=== PATIENT | male | born 1985 | race Caucasian/White ===

== ENCOUNTER 2019-07-15 10:57 | Emergency (ER) | payer BC, SELFPAY ==
[2019-07-15 11:10] VITALS: BP 141/78; PULSE 57; RESP 20; TEMP 37.1; O2SAT 100
--- NOTE | 2019-07-15 11:13 | ED.CHESTPAIN ---
HPI - Chest Pain General Chief Complaint: Chest Pain Stated Complaint: chest discomfort Time Seen by Provider: 07/15/19 11:13 Source: patient and RN notes reviewed History of Present Illness HPI narrative: Patient is a 33-year-old male that presents the urgent care with complaints of intermittent chest discomfort/pain. Patient states is been ongoing for months and he has not gotten it checked out . Patient was waiting in the waiting room drinking 2 cups of coffee without any acute distress. Patient states that he believes it could be involved with stress, or may be having panic attacks . Patient denies any cardiac history. States that he did have instances where the pain did go down the left arm and again patient was never evaluated for that pain. Patient states that sometimes it worsens with certain movements. Patient denies any pain right at the moment. States that he also smokes hookah and has related some of the increased pain to the smoking. Patient states that he is limited his smoking recently. Denies any trauma to the chest or injury. No other acute complaints. No acute distress noted. Patient had a plan of care. Related Data Home Medications Medication Instructions Recorded Confirmed hydrochlorothiazide 12.5 mg PO DAILY 07/15/19 07/15/19 Allergies Allergy/AdvReac Type Severity Reaction Status Date / Time No Known Allergies Allergy Mild Verified 07/15/19 11:23 Review of Systems Review of Systems: Narrative: CONSTITUTIONAL: Denies fever, chills, or sweats. EYES: Denies visual changes, redness, or discharge. ENT: Denies rhinorrhea, congestion, sore throat, or otalgia. CARDIOVASCULAR: Reports of intermittent chest discomfort, exacerbated with movement RESPIRATORY: Denies cough or dyspnea. GASTROINTESTINAL: Denies abdominal pain, nausea, vomiting, or diarrhea. GENITOURINARY: Denies dysuria or hematuria. SKIN: Denies rash or itching. MUSCULOSKELETAL: Denies back pain, joint pain, or myalgia. NEUROLOGIC: Denies headache, numbness, or weakness. All other systems reviewed are negative, except as documented in HPI. [facility] Family History Family History (Updated 02/03/14 @ 07:13 by DOCTOR UNKNOWN) Sibling Family history of malignant neoplasm of thyroid Social History Social History Smoking status: Former smoker Smoking end date: 06/09/06 Alcohol intake: current Comments At the time of my signature, I reviewed and agree with the nursing past medical, surgical, social, and family history. There is no relevant family history pertinent to the patient complaint. Exam Narrative: Exam Narrative: GENERAL: This is a well-nourished, well-developed patient, in no apparent distress. HEAD: normocephalic, atraumatic. EYES: PERRL. Sclera clear/white. Vision is grossly intact. EARS: External ears normal NOSE: External nose normal with no obvious nasal discharge THROAT: Mucous membranes moist NECK: Neck supple CARDIOVASCULAR: Regular rate and rhythm without murmurs, gallops, or rubs. Nonreproducible pain on assessment RESPIRATORY: Clear to auscultation. Breath sounds equal bilaterally. No wheezes, rales, or rhonchi. SKIN: warm, intact with no suspicious lesions or rash, good texture and turgor. NEURO: awake, alert, and oriented to person, place and time. There were no obvious focal neurologic abnormalities. EXTREMITIES: No clubbing, cyanosis, or edema. Course Vital Signs Vital signs: Vital Signs Temperature 98.8 F 07/15/19 11:10 Pulse Rate 57 L 07/15/19 11:10 Respiratory Rate 07/15/19 11:10 Blood Pressure 141/78 H 07/15/19 11:10 Pulse Oximetry 100 07/15/19 11:10 Temperature 98.8 F 07/15/19 11:10 Pulse Rate 57 L 07/15/19 11:10 Respiratory Rate 07/15/19 11:10 Blood Pressure 141/78 H 07/15/19 11:10 Pulse Oximetry 100 07/15/19 11:10 Reviewed?patient is informed that they may have pre-hypertension or hypertension based on a blood pressure reading in the department. I
--- NOTE | 2019-07-15 11:30 | ECG_ITS ---
Measurements Intervals [place] Rate: 60 P: 51 SD: 159 QRS: 63 QRSD: 102 T: 30 QT: 389 QTc: 389 Interpretive Statements SINUS RHYTHM WITH SINUS ARRHYTHMIA BASELINE WANDER- II, III NORMAL ECG Electronically Signed On 07-15-2019 11:50:50 [employer] by Mark Galvan D.O.
== END 2019-07-15 11:49 | disposition home or self-care (01) ==
PROVIDERS: Emergency Provider Nurse Practitioner Family
DX: R07.89 Other chest pain (principal); F17.290 Nicotine dependence, other tobacco product, uncomplicated; I10 Essential (primary) hypertension
CPT/HCPCS: 93005; 99203; G0463

== ENCOUNTER 2021-09-25 15:46 | Inpatient (IN) | payer BC, SELFPAY ==
[2021-09-25] VITALS (8 sets, daily range): BP systolic 134–172; BP diastolic 72–99; PULSE 69–86; RESP 16–22; TEMP 36.7–37; O2SAT 97–100
--- NOTE | ~2021-09-25 | XR_ITS ---
EXAMINATION: XR surgery orthopedic DATE: 09/26/2021 16:30 INDICATION: Casting of a right ankle fracture TECHNIQUE: 2 fluoroscopic images of the right ankle were obtained during procedure performed by Dr. Jai adair. Radiologist was not present for the imaging or procedure. The amount of fluoroscopy time used during this procedure was 0.2 minutes. COMPARISON: 09/25/2021 FINDINGS: Again seen are fractures of the medial and lateral malleoli of the right ankle the post reduction and plaster splinting. The medial malleolar fracture has been reduced to essentially anatomic alignment. There is approximately 2 cortical widths posterior displacement and minimal anterior angulation of t he lateral malleolar fracture. The tibial plafond is now properly centered over the talar dome. IMPRESSION: 1. Near-anatomic alignment post reduction and casting of a bimalleolar fracture of the right ankle. S ee procedure note for further detail. Reviewed, dictated and finalized at location A. IMPRESSION: 1. Near-anatomic alignment post reduction and casting of a bimalleolar fracture of the right ankle. See procedure note for further detail.
--- NOTE | ~2021-09-25 | XR_ITS ---
EXAMINATION: XR ankle RT min 3V DATE: 09/25/2021 16:05 INDICATION: Right ankle pain, swelling and deformity post fall TECHNIQUE: Anteroposterior, oblique, mortise, and lateral views of the right ankle were obtained. COMPARISON: None. FINDINGS: Spiral fracture of the distal metaphyseal region of the right fibula. Mildly comminuted fracture at t he medial malleolus and coronally oriented fracture extending across the posterior margin of the tibi al plafond. All 3 malleolar fragments remain in relatively normal alignment with respect to the inter vening talar dome or there is anterior dislocation of the tibial plafond with the talar dome and all 3 malleolar fragments displaced posteriorly and approximately 35 degrees posterior angulated relative to the more proximal tibia and fibula. Normal alignment of the bones in the visualized mid and hindf oot. No other fractures identified. IMPRESSION: 1. Trimalleolar fracture dislocation at the right ankle with posterior displacement and angulation of the talar dome and associated medial, lateral and posterior malleolar fragments. Reviewed, dictated and finalized at location A. IMPRESSION: 1. Trimalleolar fracture dislocation at the right ankle with posterior displace ment and angulation of the talar dome and associated medial, lateral and screen cutter and trimmer ior malleolar fragments.
--- NOTE | ~2021-09-25 | XR_ITS ---
EXAM: XR ankle RT 2V HISTORY: Dislocation Reduction COMPARISON: Right ankle x-ray, same date at 4:00 PM. FINDINGS: Interval temporal cast placement. Improved alignment of the ankle joint, with mild persist ent lateral displacement and widening of the medial gutter. Near-anatomic alignment of the medial mal leolus fracture fragment. Improved alignment of the lateral malleolus fragment, with mild persistent posterior displacement. The syndesmosis widening has been corrected. IMPRESSION: Successful right ankle fracture/dislocation reduction, with mild residual lateral displacement of the talus and medial gutter widening, and mild posterior displacement of the lateral malleolus fragment. Reviewed, dictated and finalized at location K. IMPRESSION: Successful right ankle fracture/dislocation reduction, with mild residual later al displacement of the talus and medial gutter widening, and mild posterior dis placement of the lateral malleolus fragment.
--- NOTE | ~2021-09-25 | CT_ITS ---
CT OF RIGHT ANKLE EXAMINATION: CT ankle RT wo con DATE: 09/25/2021 18:18 INDICATION: Ankle fracture, preoperative planning. TECHNIQUE: Computed tomography (CT) of the right ankle was performed without intravenous contrast. Au tomated exposure control and iterative reconstruction technique were employed. The dose-length produc t was 548.41 mGy-cm. COMPARISON: Right ankle x-ray, same date. FINDINGS: Limitations: None Bones: Comminuted fracture of the medial malleolus, with fracture lines extending to involve a portio n of the posterior tibia. Fracture lines also involve small portions of the anterior and posterior ar ticular surface. Tiny, 2 mm ossific fragment in the posterior medial joint space. Predominantly obliq ue, minimally comminuted fracture of the distal fibula. The portion of the distal fibula that would n ormally articulate with the tibia is dislocated anteriorly. No other fracture. Soft Tissues: Ankle joint soft tissue swelling, otherwise the soft tissues appear within normal limit s. No evidence of tendon disruption. Fluid: Small volume ankle joint effusion. IMPRESSION: Comminuted medial malleolus fracture with extension to the posterior tibia. Minimal articular surface involvement. 2 mm posterior medial articular bone fragment. Predominantly oblique distal fibular fra cture, distal fragment dislocated anteriorly relative to its normal articulating position with the ti julia. Reviewed, dictated and finalized at location K. IMPRESSION: Comminuted medial malleolus fracture with extension to the posterior tibia. Min imal articular surface involvement. 2 mm posterior medial articular bone fragme nt. Predominantly oblique distal fibular fracture, distal fragment dislocated a nteriorly relative to its normal articulating position with the tibia.
--- NOTE | 2021-09-25 16:05 | ED.LOWEXIN ---
HPI - Extremity Injury (Lower) General Chief Complaint: Extremity Injury, Lower Stated Complaint: R ankle injury Time Seen by Provider: 09/25/21 16:05 Source: patient Mode of arrival: wheelchair Limitations: no limitations History of Present Illness HPI Narrative: The patient is a 36 yo male with a history of HTN presenting to the ER for evaluation of right ankle pain. Patient states that he fell while skateboarding, causing him to injure his right ankle. He reports deformity, and significant aching pain which is worsened with movement. Denies numbness or weakness in the right foot. Patient denies head trauma. Denies upper extremity injury. Patient was given 100 fentanyl in route by EMS. No evidence of open fracture or bleeding per EMS report. Patient's last oral intake was clear liquids around 1 hour ago, last meal noon today. Related Data Home Medications Medication Instructions Recorded Confirmed hydrochlorothiazide 12.5 mg PO DAILY 07/15/19 07/15/19 Allergies Allergy/AdvReac Type Severity Reaction Status Date / Time No Known Allergies Allergy Mild Verified 09/25/21 15:52 Review of Systems Review of Systems: CONSTITUTIONAL: Denies fever CARDIOVASCULAR: Denies chest pain RESPIRATORY: Denies cough or dyspnea. GASTROINTESTINAL: Denies abdominal pain SKIN: Denies rash MUSCULOSKELETAL: Denies back pain, reports right ankle pain NEUROLOGIC: Denies headache [facility] Family History Family History (Updated 02/03/14 @ 07:13 by DOCTOR UNKNOWN) Sibling Family history of malignant neoplasm of thyroid Social History Social History (Updated 09/25/21 @ 16:18 by Brissa Zayas MD) Smoking status: Former smoker Smoking end date: 06/09/06 Alcohol intake: current Alcohol use details: Social, occasional Substance use: current Substance use type: marijuana Exam Narrative: GENERAL: Awake, alert, conversant HEAD: Normocephalic, atraumatic. EYES: PERRLA and EOMI. ENT: Nares clear, no rhinorrhea or epistaxis. Mucous membranes moist. NECK: Supple. CHEST: No respiratory distress, breathing even and non labored HEART: Regular rate, sinus rhythm ABDOMEN:Non distended, non tender EXTREMITIES: Pelvis is stable to anterior and lateral compression without pain. Bilateral knee normal-appearing. Right ankle with obvious deformity, DP pulse 2+. Intact distal sensation. Patient is able to move his phalanxes/phalanges right foot.No laceration or ecchymoses. No areas of bleeding or laceration. SKIN: Warm, dry, no rash. NEURO:No focal deficits. Alert and oriented x3 Course Vital Signs Vital signs: Vital Signs Temperature 36.7 C 09/25/21 15:46 Pulse Rate 86 09/25/21 15:46 Respiratory Rate 18 09/25/21 15:46 Blood Pressure 161/99 H 09/25/21 15:46 Pulse Oximetry 97 09/25/21 15:46 Temperature 36.7 C 09/25/21 15:46 Pulse Rate 69 09/25/21 18:05 Respiratory Rate 18 09/25/21 18:05 Blood Pressure 172/92 H 09/25/21 18:05 Pulse Oximetry 98 09/25/21 18:05 Procedures Orthopedic Fracture Reduction Fracture #1: Fracture Reduction date: 09/25/21 Fracture Reduction time: 17:27 Time Out Performed: Yes Side: right Fracture Reduction Location: tibia and fibula Analgesia: procedural sedation and hematoma block Pre-Procedure Neuro Vascular Exam: normal Technique: direct manipulation Post Reduction X-rays Demonstrate: anatomical reduction Post-reduction neuro exam: intact Post-reduction vascular exam: intact Splint Applied: Yes Patient Tolerated Procedure: well Procedural Sedation Procedural Sedation #1: Procedural Sedation Date: 09/25/21 Procedural Sedation Time: 17:27 Provider Performed: sedation and procedure Time Out: Yes Informed Consent Obtained: yes Equipment in Room: bag and mask, capnography, color television console monitor, oxygen, pulse oximeter and suction Plan for
[2021-09-25] MEDS: ONDANSETRON INJ 4 MG/2 ML VIAL IV PUSH ×2 (16:18→17:00)
[2021-09-25] MEDS: fentaNYL CITRATE INJ (*CRX) 100 MCG/2 ML VIAL 50 MCG IV PUSH ×2 (16:18→17:40)
[2021-09-25] MEDS: HYDROmorphone HCL INJ (*CRX) 1 MG/ML SYR 0.5 MG IV PUSH (17:00)
[2021-09-25] MEDS: SODIUM CHLORIDE 0.9% IV 1,000 ML 999 ML IV CONT (17:06)
[2021-09-25] MEDS: LIDO 1%/EPINEPHRINE 1:100,000 20 ML VIAL (17:07)
[2021-09-25] MEDS: PROPOFOL IV EMULSION 200 MG/20 ML VIAL (17:41)
--- NOTE | 2021-09-25 18:11 | PC.NURSE ---
Addendum entered by Rand Granados RN 09/25/21 19:45: 1733 procedure ended. Original Note: 1729 30mg of Propofol IV given. PT awake. 1730 20mg of propofol IV given PT awake. 1730 30mg of propofol IV given PT awake. 1731 20mg of propofol IV given PT awake.
[2021-09-25 18:49] LABS: Basophils Absolute Auto 0.1 K/mm3 (0.0-0.1); Basophils Percent Auto 0.4 % (0.2-1.2); Eosinophils Absolute Auto 0.1 K/mm3 (0-0.3); Eosinophils Percent Auto 0.9 % (0-4.4); Hematocrit 43.6 % (42.0-52.0); Hemoglobin 15.3 g/dL (14.0-18.0); Immature Granulocyte Absolute 0.04 K/mm3 (0.00-0.031); Immature Granulocyte Percent A 0.4 % (0-0.5); Lymphocytes Percent Auto 10.6 % (18.3-44.2); Mean Corpuscular HGB Conc 35.1 g/dl (32-36); Mean Corpuscular Hemoglobin 30.4 pg (26-34); Mean Corpuscular Volume 86.5 fl (80-100); Mean Platelet Volume 9.4 fl (7.4-10.4); Monocytes Absolute Auto 0.5 K/mm3 (0.1-0.6); Monocytes Percent Auto 4.8 % (2.6-8.5); Neutrophils Absolute Auto 9.4 K/mm3 (1.3-6.7); Neutrophils Percent Auto 82.9 % (45.5-73.1); Platelet Count Result 231 k/mm3 (150-375); Red Blood Count 5.04 M/mm3 (4.6-6.20); White Blood Count 11.3 K/mm3 (4.5-10.0)
[2021-09-25 18:59] LABS: Anion Gap 11 mmol/L (8-16); Blood Urea Nitrogen 17 mg/dL (9-20); Calcium 8.7 mg/dL (8.4-10.2); Carbon Dioxide 19 mmol/L (22-30); Chloride 111 mmol/L (98-107); Estimated CRCL calculation 126 ml/min; Estimated Glomerular Filt Rate > 60; Glucose 109 mg/dL (65-110); Sodium 141 mmol/L (137-145)
[2021-09-25] MEDS: HYDROcodone/acetaminophen (*CRX) 5-325 MG TABLET 1 TAB PO ×2 (19:25→22:55)
--- NOTE | 2021-09-25 20:58 | ADMGEN ---
This patient, Steve Damian, was admitted to Medical Room 343-01. Patient/family oriented to hospital policies and general routines including ID bracelet, bed and alarms, visiting hours, pain management, procedures, bathroom and other care routines, personal items, smoking policy, room service/diet, and visiting hours. Information on how to activate the Rapid Response Team has been discussed. Patient/Family are encouraged to report perceived risks to care and to ask questions if they do not understand what they are told or what they should do.
[2021-09-26] VITALS (7 sets, daily range): BP systolic 121–171; BP diastolic 74–91; PULSE 54–75; RESP 14–22; TEMP 36.2–37.1; O2SAT 96–100
[2021-09-26] MEDS: HYDROcodone/acetaminophen (*CRX) 5-325 MG TABLET 1 TAB PO ×2 (06:05→12:55)
--- NOTE | 2021-09-26 13:06 | WPDHPUPDATE1 ---
History and Physical Update Update Date/Time: 09/26/21 13:06 History and Physical has been reviewed, including an updated exam of the patient. There are NO changes in the patient's condition. Risks, benefits, and alternatives have been discussed and questions answered. Patient agrees to proceed with procedure.
--- NOTE | 2021-09-26 13:06 | PM.IMHP ---
H&P: HPI History of Present Illness Date/Time: 09/26/21 13:06 [place] WAS ON A SKATE BOARD AND FELL OFF. HE NOW HAS A RIGHT TRIMALLEOLAR ANKLE FRACTURE. HE WAS SEEN IN THE ED AND UNDERWENT CLOSED REDUCTION AND SPLINTING. HE WAS ADMITTED OVERNIGHT FOR PAIN CONTROL AND OBSERVATION WITH NEURO VASCULAR CHECKS DUE TO THE SEVERITY OF HIS DISLOCATION. HE WILL MOST LIKELY REQUIRE OBSERVATION FOR AT LEAST 1 WEEK PRIOR TO ORIF. HE IS HEAR FOR CLOSED REDUCTION AND SPLINT EXCHANGE TO A MORE STABLE SPLINT AND HE WILL F/U IN 1 WEEK FOR SKIN CHECK. Chief Complaint: RIGHT ANKLE TRIMALLEOLAR FRACTURE DISLOCATION Review of Systems Review of Systems: All systems reviewed & are unremarkable except as noted in HPI and below Constitutional: Constitutional: Reports no additional constitutional complaints Eyes: Eyes: Reports no additional eye complaints ENT: Reports system reviewed and no additional complaints, except as documented Cardiovascular: Cardiovascular: Reports no additional cardiovascular complaints, Denies chest pain, Denies chest pain with activity and Denies diaphoresis Respiratory: Respiratory: Reports no additional respiratory complaints, Denies cough and Denies dyspnea Gastrointestinal: Gastrointestinal: Reports no additional gastrointestinal complaints Genitourinary: Genitourinary: Reports no additional male genitourinary complaints Musculoskeletal: Musculoskeletal: Reports no additional musculoskeletal complaints Neurologic: Reports Normal hearing present, Denies Neuro-related abnormal movements, Denies Abnormal speech present and Denies abnormal gait [facility] Past Medical History Medical History (Updated 09/26/21 @ 15:24 by Mannie Helms MD) Hypertension Family History Family History Sibling Family history of malignant neoplasm of thyroid Social History Social History Smoking packs per day: 1 Smoking cigarettes per day: 20.0 Years smoked: 3.5 Smoking pack-years: 3.50 Smoking status: Former smoker Tobacco type: cigarettes and pipe Smoking end date: 06/09/06 Alcohol intake: current Drinks per week: 2 Alcohol use details: Social, occasional Substance use: current Substance use type: marijuana Other substance usage details: daily Spiritual care concerns: No Meds Home Medications and Allergies Home Medications Medication Instructions Recorded Confirmed Type hydrochlorothiazide 12.5 mg PO DAILY 07/15/19 09/25/21 History Allergies Allergy/AdvReac Type Severity Reaction Status Date / Time No Known Allergies Allergy Mild Verified 09/25/21 15:52 Vital Signs Vital Signs - 24 hr 09/25/21 15:46 09/25/21 17:24 09/25/21 17:30 Temperature 36.7 C Pulse Rate 86 Pulse Rate [Monitor] Respiratory Rate 18 22 H 20 Blood Pressure 161/99 H Blood Pressure [Right Arm] 147/95 H Pulse Oximetry 97 100 99 09/25/21 17:35 09/25/21 17:50 09/25/21 18:05 Temperature Pulse Rate Pulse Rate [Monitor] 70 69 69 Respiratory Rate 20 20 18 Blood Pressure Blood Pressure [Right Arm] 165/97 H 172/92 H 172/92 H Pulse Oximetry 100 98 98 09/25/21 20:54 09/25/21 21:16 09/26/21 06:00 Temperature 37.0 C 37.1 C Pulse Rate 72 70 73 Pulse Rate [Monitor] Respiratory Rate 16 22 H 22 H Blood Pressure 134/72 150/92 H 146/91 H Blood Pressure [Right Arm] Pulse Oximetry 100 100 100 Exam Extrem: Right lower extremity: normal capillary refill, edema, no joint enlargement, lower leg Details: normal to inspection, palpable cord and no edema; no tenderness, no abrasions, no lacerations and no ecchymosis, ankle Details: abnormal to inspection (swelling and ecchymosis is severe. no fracture blistering), tenderness Location: of the lateral malleolus, of the medial malleolus and of the anterior talofibular ligament (DELTOID LIGAMENT), swelling Details: diffusely and laterally,
--- NOTE | 2021-09-26 14:21 | WPDANESEPPF ---
Anes - Initial Pre Proc Eval Procedure: Operation Date: 09/26/21 14:30 Proposed Procedures p Closed Reduction Right Ankle With Splinting - Mannie Helms MD Date/Time: 09/26/21 14:21 Surgeon: Mannie Helms MD Pre Op Diagnosis: Trimalleolar fracture Patient Data Age: 36 Gender: M Height: 1.93 m Weight: 115.9 kg Last Vital Signs Temp 37.1 C 09/26/21 06:00 Pulse 73 09/26/21 06:00 Resp 22 H 09/26/21 06:00 BP 146/91 H 09/26/21 06:00 Pulse Ox 100 09/26/21 06:00 Allergies Allergy/AdvReac Type Severity Reaction Status Date / Time No Known Allergies Allergy Mild Verified 09/25/21 15:52 Home Medications Medication Instructions Recorded Confirmed Type hydrochlorothiazide 12.5 mg PO DAILY 07/15/19 09/25/21 History Laboratory Tests 09/25/21 09/25/21 09/25/21 18:42 18:42 18:42 WBC 11.3 K/mm3 H K/mm3 (4.5-10.0) RBC 5.04 M/mm3 M/mm3 (4.6-6.20) Hgb 15.3 g/dL g/dL (14.0-18.0) Hct 43.6 % % (42.0-52.0) MCV 86.5 fl fl (80-100) MCH 30.4 pg pg (26-34) MCHC 35.1 g/dl g/dl (32-36) RDW 12.0 % % (11.5-14.5) Plt Count 231 k/mm3 k/mm3 (150-375) MPV 9.4 fl fl (7.4-10.4) Immature Gran % (Auto) 0.4 % % (0-0.5) Neut % (Auto) 82.9 % H % (45.5-73.1) Lymph % (Auto) 10.6 % L % (18.3-44.2) [place] % (Auto) 4.8 % % (2.6-8.5) Eos % (Auto) 0.9 % % (0-4.4) Baso % (Auto) 0.4 % % (0.2-1.2) Lymph # (Auto) 1.20 K/mm3 K/mm3 (0.9-3.2) [place] # (Auto) 0.5 K/mm3 K/mm3 (0.1-0.6) Eos # (Auto) 0.1 K/mm3 K/mm3 (0-0.3) Baso # (Auto) 0.1 K/mm3 K/mm3 (0.0-0.1) Abs Immat Gran (auto) 0.04 K/mm3 H K/mm3 (0.00-0.031) Absolute Neuts (auto) 9.4 K/mm3 H K/mm3 (1.3-6.7) Absolute Nucleated RBC 0.0 K/mm3 K/mm3 (0.0-0.012) Nucleated RBC % 0.0 % % (0.0-0.2) Sodium 141 mmol/L mmol/L (137-145) Potassium 4.0 mmol/L mmol/L (3.4-5.0) Chloride 111 mmol/L H mmol/L (98-107) Carbon Dioxide 19 mmol/L L mmol/L (22-30) Anion Gap 11 mmol/L mmol/L (8-16) BUN 17 mg/dL mg/dL (9-20) Creatinine 1.00 mg/dL mg/dL (0.7-1.3) Estim Creat Clear Calc 126 ml/min ml/min Estimated GFR > 60 (59 - ) Glucose 109 mg/dL mg/dL (65-110) Calcium 8.7 mg/dL mg/dL (8.4-10.2) Blood Type B Positive Antibody Screen Negative Patient hx anesthesia problems: none Family hx anesthesia problems: none Results Review: All pre-operative results and documents have been reviewed as part of the pre-operative evaluation. [facility] Past Medical History Medical History (Updated 09/26/21 @ 14:22 by Francisco Calderon DO) Hypertension Family History Family History Sibling Family history of malignant neoplasm of thyroid Social History Social History Smoking packs per day: 1 Smoking cigarettes per day: 20.0 Years smoked: 3.5 Smoking pack-years: 3.50 Smoking status: Former smoker Tobacco type: cigarettes and pipe Smoking end date: 06/09/06 Alcohol intake: current Drinks per week: 2 Alcohol use details: Social, occasional Substance use: current Substance use type: marijuana Other substance usage details: daily Spiritual care concerns: No Anes - Eval Final PreProcedure Day of Procedure 09/26/21 14:21 Patient weight: obese Heart: regular rate and rhythm Lungs: clear to auscultation and normal air movement Airway: Mallampati scale class II Neurological: alert and oriented Last oral intake: >/= 8 hours ASA classification: III Emergent: no Anesthetic plan: proceed Anesthesia type and monitoring: general GI
[2021-09-26] MEDS: LACTATED RINGERS 1,000 ML 30 ML IV CONT (14:30)
--- NOTE | 2021-09-26 15:25 | SUR.PREOP ---
resting without complaints. Girlfriend Maria Ines now with patient. Discussed delay, voices understanding.
--- NOTE | 2021-09-26 16:30 | P.OP_ITS ---
Procedure Note - Detailed Date of Procedure 09/26/21 Pre-op Diagnosis Right Trimalleolar Ankle Fracture Post-op Diagnosis Same Procedure Performed CLOSED REDUCTION AND SPLINTING RIGHT ANKLE FRACTURE Surgeon Mannie Helms MD Anesthesia General and MAC Description of Procedure THE PATIENT WS TAKEN TO THE OPERATING ROOM IN STABLE CONDITION. HE WAS GIVEN GENERAL ANESTHESIA. THE RIGHT LOWER EXTREMITY WAS WASHED WITH A CHLORHEXIDINE WASH CLOTH. THE ANKLE HAD MODERATE TO SEVERE SWELLING. THERE WAS ECCHYMOSIS ON BOTH THE MEDIAL AND LATERAL SIDES OF THE ANKLE. THE ANKLE WAS IMAGED UNDER C- ARM AND WAS FOUND TO BE REDUCED. XEROFORM DRESSING WAS PLACED ON THE MEDIAL AND LATERAL SIDES OF THE ANKLE. NEXT A ION JOHNSON TYPE PLASTER SPLINT WAS PLACED AND WELL MOLDED. ONCE THE SPLINT WAS HARD, C-ARM XRAYS WERE TAKEN AGAIN AND IT WAS FOUND THAT THE ANKLE JOINT WAS WELL REDUCED. GENERAL ANESTHESIA WAS REVERS ED. THE PATIENT WAS TAKEN TO RECOVERY ROOM IN STABLE CONDITION. Estimated Blood Loss 0 Complications No immediate complications Condition Stable Disposition PACU
--- NOTE | 2021-09-26 16:53 | PM.DS ---
DS: Admitting Diagnosis Discharge Date 09/26/21 Admitting Diagnosis R ANKLE FRACTURE DS: Discharge Diagnosis Discharge Diagnosis (1) Trimalleolar fracture of right ankle: Qualifiers: Encounter type: initial encounter Fracture type: closed Qualified Code(s): S82.851A - Displaced trimalleolar fracture of right lower leg, initial encounter for closed fracture Code(s): S82.851A - Displaced trimalleolar fracture of right lower leg, initial encounter for closed fracture Status: Acute DS: Summary Hospital Course Reason for hospitalization: RIGHT ANKLE FRACTURE DISLOCATION Hospital Course: THE PATIENT WAS ADMITTED FOR A RIGHT ANKLE FRACTURE DISLOCATION. HIS PAIN WAS CONTROLLED. HE HAD A NORMAL DIET. HE WAS AMBULATING WELL WITH CRUTCHES. HE UNDERWENT A CLOSED REDUCTION AND SPLINTING IN THE OR. HE HAD SEVERE SWELLING AND ECCHYMOSIS. HE WILL BE DISCHARGED TODAY TO HOME. HE WILL F/U IN 5 DAYS FOR REEVALUATION AND SURGICAL PLANNING Time spent discussing smoking cessation with patient: 3 to 10 minutes Status at Discharge Functional status at discharge: independent ambulation Overall status at discharge: patient is progressing back to baseline Time Spent with Patient Time attestation: Total time spent providing and/or coordinating discharge services: Time spent: Less than 30 minutes DS: Data Data Completed and Pending Labs on day of discharge: Labs from last 24 hours 09/25/21 09/25/21 09/25/21 18:42 18:42 18:42 WBC 11.3 H RBC 5.04 Hgb 15.3 Hct 43.6 MCV 86.5 MCH 30.4 MCHC 35.1 RDW 12.0 Plt Count 231 MPV 9.4 Immature Gran % (Auto) 0.4 Neut % (Auto) 82.9 H Lymph % (Auto) 10.6 L [place] % (Auto) 4.8 Eos % (Auto) 0.9 Baso % (Auto) 0.4 Lymph # (Auto) 1.20 [place] # (Auto) 0.5 Eos # (Auto) 0.1 Baso # (Auto) 0.1 Abs Immat Gran (auto) 0.04 H Absolute Neuts (auto) 9.4 H Absolute Nucleated RBC 0.0 Nucleated RBC % 0.0 Sodium 141 Potassium 4.0 Chloride 111 H Carbon Dioxide 19 L Anion Gap 11 BUN 17 Creatinine 1.00 Estim Creat Clear Calc 126 Estimated GFR > 60 Glucose 109 Calcium 8.7 Blood Type B Positive Antibody Screen Negative Discharge Plan Discharge Attending physician on discharge: Mannie Helms Consulting providers: Danielle Jiménez Discharging Clinician: Mannie Helms Anticipated Discharge Date/Time: 09/26/21 16:41 Patient Disposition: Home, Self-Care Activity: may shower, no driving and follow weight bearing status Diet: as tolerated Wound Care Instructions: keep dressing dry Discharge Instructions: NON WEIGHT BEARING RIGHT LEG. ICE AND ELEVATE. F/U IN 5 DAYS ON THIS COMING FRIDAY Patient Instructions: Antibiotic Form Stand Alone Forms: General Discharge Information Follow-up/Referrals: Mannie Helms MD [Physician] - 10/01/21 Discharge Medications: New hydrocodone-acetaminophen 7.5-325 mg tablet 1 tablet PO Q8H PRN (Reason: pain) Qty: 30 RF: 0 Continued hydrochlorothiazide 12.5 mg Capsule 12.5 mg PO DAILY RF: 0 Date of admission: 09/25/21 17:56 Primary Care Provider: Andrew Cox Admitting Provider: Mannie Helms Attending physician on admission: Mannie Helms Condition: Stable
== END 2021-09-26 18:25 | disposition home or self-care (01) | DRG 563 ==
LOC: ANHED 18:32 → ANH3MED 19:52
PROVIDERS: Admitting Provider Orthopaedic Surgery; Emergency Provider Emergency Medicine; PCP Family Medicine; Visit Provider Orthopaedic Surgery
PROC: 0SSFXZZ Reposition Right Ankle Joint, External Approach (ICD-10-PCS; principal; 2021-09-26 14:30)
DX: S82.851A Displaced trimalleolar fracture of right lower leg, initial encounter for closed fracture (principal); V00.131A Fall from skateboard, initial encounter; I10 Essential (primary) hypertension; F12.90 Cannabis use, unspecified, uncomplicated; Z87.891 Personal history of nicotine dependence
CPT/HCPCS: 27818; 36415; 73600; 73610; 73700; 80048; 85025; 86850; 86900; 86901; 96374; 96375; 99285; A9270; J1170; J2250; J2405; J2704; J3010; J7030; J7120

== ENCOUNTER 2021-10-04 02:22 | Day surgery (SDC) | payer BC, SELFPAY ==
--- NOTE | 2021-10-03 09:00 | SUR.PREOP ---
Report to the Outpatient Waiting Room, entrance under the green pavilion located off [facility], at time 0700 on date 10/04/21. OR Time: 0900. - You and your visitor will be asked a series of questions to screen for COVID 19 for your protection. - A mask is required within the hospital. Patients may have clear liquids (water, carbonated beverages, clear teas, apple juice) until 3 hours prior to surgery with a maximum of 20 ounces. - NO CLEAR LIQUIDS AFTER 0600 - No food from midnight until time of surgery - Infants may have breast milk until 4 hours before surgery, infant formula 6 hours prior to surgery. - Children will be allowed to drink immediately following surgery. If applicable, please bring a bottle or sippy cup to assist with drinking. Juice, water, soda, and popsicles are readily available. For infants on formula, please bring formula the day of surgery. Pacifiers are allowed. Take the following medications with a SIP of water the morning of surgery: HYDROCODONE Please no make-up, nail turkish, hairspray, perfume, deodorant, or body powder the day of surgery. No jewelry (including any body piercings) or valuables the day of surgery, leave them at home. Please take a shower or bath the night before, or the morning of, surgery with an antibacterial soap. Wear comfortable, loose fitting clothing. Children are encouraged to wear pajamas. - Jewelry must be removed prior to entering the operating room. Rings and piercings that are not removed may be cut off. - The hospital will not accept responsibility for valuables. - Please leave all valuables, including medications, at home the day of surgery. If you are going home after surgery, a licensed cdl a driver must drive you home. - NO public transportation without another adult. - We recommend that an adult stay with you for 24 hours following discharge. - We also recommend that you do not drive, make important decision, drink alcoholic beverages, or take any drugs that were not prescribed by your health care provider for at least 24 hours after your discharge time. For Pediatric surgeries, we recommend two adults accompany the child home (only one inside the building at this time). One visitor will be allowed to accompany the patient into the hospital. Patients visitor will be instructed to remain with patient at all times or leave the building. We will allow the visitor to come back to the postoperative area when patient is ready. Follow any additional instructions given to you from your surgeon. Telephone instructions given to ISRAEL GRIMES and asked if any additional questions and then verbalized understanding. Patient advised to call surgeon office or pre surgery nurse liaison [phone] if any additional questions.
[2021-10-03 09:10] VITALS: BMI 31.1
--- NOTE | 2021-10-03 11:38 | P.PNAN_ITS ---
Anes - Initial Pre Proc Eval Procedure: Operation Date: 10/04/21 09:00 Proposed Procedures p Open Reduction Internal Fixation Right Ankle Fracture - Antwan Ross MD Date/Time: 10/03/21 11:38 Surgeon: Antwan Ross MD Pre Op Diagnosis: right ankle fracture Patient Data Age: 36 Gender: M Height: 1.93 m Weight: 116 kg Allergies Allergy/AdvReac Type Severity Reaction Status Date / Time No Known Allergies Allergy Mild Verified 10/04/21 07:59 Home Medications Medication Instructions Recorded Confirmed Type hydrochlorothiazide 12.5 mg PO DAILY 07/15/19 10/04/21 History hydrocodone-acetaminophen 1 tablet PO Q8H PRN #30 tablet 09/26/21 10/04/21 Rx Patient hx anesthesia problems: none Family hx anesthesia problems: none Results Review: All pre-operative results and documents have been reviewed as part of the pre-operative evaluation. COUNT INCLUDES THE [facility] Past Medical History Medical History Hypertension Surgical History Surgical History History of ankle surgery Right ORIF ankle 10/04/[address] Ross. Family History Family History Sibling Family history of malignant neoplasm of thyroid Social History Social History Smoking status: Former smoker Tobacco type: cigarettes and pipe Smoking end date: 06/09/06 Alcohol intake: current Drinks per week: 2 Alcohol use details: Social, occasional Substance use: current Substance use type: marijuana Other substance usage details: daily Spiritual care concerns: No Anes - Eval Final PreProcedure Day of Procedure 10/03/21 11:38 Patient weight: obese Heart: regular rate and rhythm Lungs: clear to auscultation and normal air movement Airway: Mallampati scale class II Neurological: alert and oriented Last oral intake: >/= 8 hours ASA classification: III Emergent: no Anesthetic plan: proceed Anesthesia type and monitoring: general LMA and standard monitoring Results Review: All pre-operative results and documents have been reviewed as part of the pre-operative evaluation. Informed Consent: The patient's anesthetic plan and its attendant risks and benefits were discussed with the patient/family/POA. Questions were solicited and answers provided to the satisfaction of the patient/family/POA.
[2021-10-04] VITALS (8 sets, daily range): BP systolic 105–157; BP diastolic 64–94; PULSE 74–96; RESP 12–18; TEMP 36.1–36.7; O2SAT 94–100
--- NOTE | ~2021-10-04 | XR_ITS ---
EXAMINATION: XR surgery orthopedic DATE: 10/04/2021 11:53 INDICATION: Internal fixation of a right ankle fracture TECHNIQUE: 4 fluoroscopic images of the right ankle were obtained during procedure performed by Dr. Siobhan bowman. Radiologist was not present for the imaging or procedure. The amount of fluoroscopy time used during this procedure was 0.6 minutes. COMPARISON: 09/26/2021 FINDINGS: Interval open reduction and internal fixation of the previously noted bimalleolar fracture of the right ankle which is now in near-anatomic alignment. The medial malleolar fracture is fixed wi th a medial sided plate and screws along with a few additional separate interfragmentary screws. The lateral malleolar fractures fixed with an interfragmentary screw and lateral plate and screws. Ankle mortise is congruent. No other fractures identified. Joint spaces are unremarkable. IMPRESSION: 1. Near-anatomic alignment post open reduction and internal fixation of medial and lateral malleolar fractures at the right ankle. Reviewed, dictated and finalized at location B.
--- NOTE | 2021-10-04 06:02 | ECG_ITS ---
Measurements Intervals [place] Rate: 71 P: 27 IN: 154 QRS: 43 QRSD: 96 T: 15 QT: 364 QTc: 397 Interpretive Statements SINUS RHYTHM COMPARED TO ECG 07/15/2019 11:20:06 NO SIGNIFICANT CHANGES Electronically Signed On 10-04-2021 20:48:55 CDT by Ritu Miles M.D.
--- NOTE | 2021-10-04 07:02 | WPDHPUPDATE1 ---
History and Physical Update Update Date/Time: 10/04/21 07:02 History and Physical has been reviewed, including an updated exam of the patient. There are NO changes in the patient's condition. Risks, benefits, and alternatives have been discussed and questions answered. Patient agrees to proceed with procedure.
[2021-10-04] MEDS: LACTATED RINGERS 1,000 ML 30 ML IV CONT ×2 (07:48→12:19)
[2021-10-04] MEDS: KETOROLAC 15 MG/ML VIAL (*BKC) IV PUSH (07:49)
--- NOTE | 2021-10-04 08:08 | SUR.PREOP ---
SPILNT TO RIGHT LOWER LEG REMAINS IN PLACE PER MD ORDERS. HAIR REMOVAL NOT DONE FOR THIS REASON.
[2021-10-04] MEDS: ceFAZolin 2 GM/D5W 50 ML 2 GM/50 ML BAG IVPB (09:16)
--- NOTE | 2021-10-04 09:24 | WPDANESPNB ---
Anes - Peripheral Nerve Block Date/Time: 10/04/21 09:24 I have discussed with the patient/family/POA the placement of a peripheral nerve block for post-operative pain management, including associated risks, benefits, complications, and side effects. Alternative methods of post-operative analgesia were detailed. Questions were solicited and answers provided to the satisfaction of the patient/family/POA. Time-Out: A pre-procedural Time-Out was completed immediately before starting the procedure and confirmed: Patient Identification, Site, Procedure, Patient Position and the Availability of Requisite Equipment. Clinical Indications: Acute post-operative pain management requested by the operative surgeon. Nerve Block Insertion Note Anes-nerve block: posterior fossa sciatic right and adductor canal right Patient position: supine (for adductor canal) and other (right lateral for popliteal) Skin prep: chlorhexidine Needle: 22 gauge, stimulating, insulated echogenic needle. Needle length: 80 mm Technique: nerve stimulation lost at (mA) (for popliteal lost at 0.2) and ultrasound Injectate: bupivacaine 0.5% with epi 5 mcg/ml (20 mL for popliteal, 10 mL for adductor canal (no epi)) Observations: tolerated well Complications: none Procedure start time:: 905 Procedure end time:: 911
--- NOTE | 2021-10-04 12:43 | W.PM.PROC2 ---
Procedure Note - Detailed Date of Procedure 10/04/21 Pre-op Diagnosis right ankle trimalleolar fracture Post-op Diagnosis Same Procedure Performed Open reduction internal fixation right ankle trimalleolar fracture with fixation of medial and lateral malleolus Surgeon Antwan Ross MD Supervisor [employer] 1st dermatology physician assistant Anesthesia General Indications 36-year-old who injured his right ankle skateboarding. Sustained a right ankle trimalleolar fracture with displacement. Initially underwent closed reduction in the emergency room. Presents now for operative treatment. Description of Procedure After informed consent, the operative extremity was marked in the preoperative holding area. Patient received intravenous antibiotics. Patient was then taken to the operating room and underwent general anesthesia by the anesthesia team. Positioned supine on the operating room table with a soft bump under the ipsilateral hip. A time-out was performed confirming the patient, site of the surgery, operative plan. Right Lower extremity then prepped and draped in the usual sterile surgical fashion using ChloraPrep skin solution. Foot and ankle exsanguinated and a thigh tourniquet inflated to 250 mmHg. Longitudinal incision made over the lateral ankle distal fibula with a 15 blade knife. Hemostasis controlled with electrocautery. Full-thickness soft tissue flaps developed and the fascia was incised in line with the skin incision. Fracture identified and cleared with a dental pick, irrigation and rongeur. Fracture reduced and held with bone-holding clamp. Image intensification confirmed reduction of the fracture and the ankle mortise. Fixation achieved with a 3.5 millimeter fully-threaded cortical screw placed in lag technique across the fracture. Neutralization with a lateral plate with unicortical screws distal to fracture and bicortical screws proximal to the fracture. Good alignment and stability of the fracture noted. Image intensification used to confirm reduction of the fracture and placement of the hardware. Medial side then addressed. Longitudinal incision made with a 15 blade knife over the medial malleolus fracture. Hemostasis controlled with electrocautery. Fascia incised in line with skin incision. Periosteum cleared from the medial malleolus fracture. Medial side of the joint inspected and noted to have trauma to the chondral surface. There were 3 loose chondral pieces in the joint which were removed. Thorough irrigation of the joint removed any other debris. A 7 mm injury to the chondral surface of the medial talar dome. Loose chondral pieces were removed. The bone was then addressed with a microfracture technique with good blood flow. Thorough irrigation of the ankle joint and suctioned out. Fracture reduced and provisionally pinned. Fracture was noted to extend posteriorly. This main fracture piece was reduced and provisionally pinned. The anterior colliculus piece was then reduced and pinned. Separate anterior proximal piece which was more of a trapdoor was then reduced and provisionally pinned. Image intensification confirm reduction well as reduction of the ankle mortise. Fixation achieved with 4.0 mm partially threaded cancellous screws x1 placed in cannulated screw fashion. A hook plate then applied and fastened. Separate 2.7 mm screws used for the smaller pieces. Image intensification confirmed reduction of the fracture and placement of the hardware. Stress of the ankle performed with good stability of the ankle mortise in all directions. Posterior malleolus noted to be reduced and stable. Wounds thoroughly irrigated with antibiotic solution. Fascia repaired with 00 Vicryl interrupted suture. Subcutaneous tissue repaired with 000 Monocryl interrupted suture and Skin approximated with alen. Sterile dressings applied followed by bulky dressing and splint. Patient awoken from anesthesia, extubated and taken to the recovery room in stable conditio
[2021-10-04] MEDS: oxyCODONE HCL (*CRX) 5 MG TAB IR PO (14:02)
== END 2021-10-04 14:15 | disposition home or self-care (01) ==
PROVIDERS: PCP Family Medicine; Visit Provider Orthopaedic Surgery
PROC: (CPT 27822; principal; 2021-10-04 09:00)
DX: S82.851A Displaced trimalleolar fracture of right lower leg, initial encounter for closed fracture (principal); G89.18 Other acute postprocedural pain; V00.131A Fall from skateboard, initial encounter; Y93.51 Activity, roller skating (inline) and skateboarding; I10 Essential (primary) hypertension; Z87.891 Personal history of nicotine dependence; F12.90 Cannabis use, unspecified, uncomplicated; E66.9 Obesity, unspecified; Z68.29 Body mass index [BMI] 29.0-29.9, adult
CPT/HCPCS: 27822; 64445; 64447; 93005; A9270; C1713; C1769; J0690; J1100; J1170; J1885; J2250; J2405; J2704; J3010; J7120

== ENCOUNTER 2025-02-21 08:31 | Emergency (ER) | payer BC, SELFPAY ==
[2025-02-21 08:41] VITALS: BP 146/79; PULSE 64; RESP 14; TEMP 36.9; O2SAT 100
[2025-02-21 08:50] LABS: EDSTREPNEGPOS1 Negative (Negative)
--- NOTE | 2025-02-21 08:53 | ED_ITS ---
HPI - URI/Sore Throat General Chief Complaint: Upper Respiratory Infection Stated Complaint: Cold Like / Cough Time Seen by Provider: 02/21/25 08:53 Source: patient Mode of arrival: ambulatory Limitations: no limitations History of Present Illness HPI Narrative: 39-year-old male presents with complaint nasal congestion, dry cough. Symptoms for 2 days. Afebrile. Initially had sore throat when waking up 2 morn ings ago but has resolved. Patient states that his girlfriend has strep throat. Wants to make sure he does not have strep. Taking DayQuil to treat symptoms. All systems reviewed and negative except as noted above. Related Data Home Medications ?Medication ?Instructions ?Recorded ?Confirmed ?Last Taken ?Type hydrochlorothiazide 12.5 mg capsule 12.5 mg PO DAILY 0 07/15/19 02/21/25 Unknown History Allergies Allergy/AdvReac Type Severity Reaction Status Date / Time No Known Allergies Allergy Mild Verified 02/21/25 08:47 PMFSH Past Medical History Medical History Hypertension Surgical History Surgical History History of ankle surgery Right ORIF ankle 10/04/[address] Ross. Family History Family History Sibling Family history of malignant neoplasm of thyroid Social History Social History Smoking status: Former smoker Tobacco type: cigarettes and pipe Smoking end date: 06/09/06 Alcohol intake: current Drinks per week: 2 Alcohol use details: Social, occasional Substance use: current Substance use type: marijuana Other substance usage details: daily Spiritual care concerns: No Comments At time of signature, agree with nursing past medical, surgical, social and family history. There is no relevant family history pertinent to the presenting complaint. Exam Narrative: GENERAL: This is a well-nourished, well-developed patient, in no apparent distress. HEAD: normocephalic, atraumatic. EYES: PERRL. Sclera clear/white. Vision is grossly intact. EARS: External ears normal, auditory canals clear and without drainage, TMs normal without perforation. Hearing grossly intact. NOSE: External nose normal with Congestion, clear nasal drainage, erythema to bilateral nares THROAT: Mucous membranes moist, postnasal drainage without erythema, swelling or exudates NECK: Neck supple, non-tender without lymphadenopathy, masses or thyromegaly. CARDIOVASCULAR: Regular rate and rhythm without murmurs, gallops, or rubs. RESPIRATORY: Clear to auscultation. Breath sounds equal bilaterally. No wheezes, rales, or rhonchi. SKIN: warm, Dry, intact with no suspicious lesions or rash, good texture and turgor. NEURO: awake, alert, and oriented to person, place and time. There were no obvious focal neurologic abnormalities. EXTREMITIES: No joint tenderness, effusion, or edema noted. Course Course Level of Care: Express Care Visit Vital Signs Vital signs: Vital Signs Temperature 36.9 C 02/21/25 08:41 Pulse Rate 64 02/21/25 08:41 Respiratory Rate 14 02/21/25 08:41 Blood Pressure 146/79 H 02/21/25 08:41 Pulse Oximetry 100 02/21/25 08:41 Oxygen Delivery Room Air 02/21/25 08:41 Temperature 36.9 C 02/21/25 08:41 Pulse Rate 64 02/21/25 08:41 Respiratory Rate 14 02/21/25 08:41 Blood Pressure 146/79 H 02/21/25 08:41 Pulse Oximetry 100 02/21/25 08:41 Oxygen Delivery Room Air 02/21/25 08:41 reviewed MDM - URI/Sore Throat MDM Narrative Medical decision making narrative: negative rapid strep. Strep culture ordered. Patient does not have sore throat at this time. Recommend [id number] medications to treat viral symptoms. Patient is well-appearing, nontoxic. Voices understanding. Differential Diagnosis Differential diagnosis: Likely upper respiratory infection, sinusitis, viral infection and pharyngitis Lab Data Labs: Lab Results 02/21/25 Range/Units 08:49 POC Grp A Strep Screen Negative (Negative) Discharge Plan Discharge Clinical Impression: Viral upper respiratory tract infection with cough Patient Disposition: Home Condition: Stable Instructions: Upper Respiratory Infection (ED) Additional Instructions: your strep test was negative today. Her symptoms are viral and may last 10-14 days. Purchase the [id number] decongestants pseudoephedrine and take as directed on packaging. This medication is found by the pharmacy counter. Use an [id number]-[id number]-nvesypu nasal spray such as Flonase. Take as directed on packaging. Follow-up with your primary care physician if symptoms are not improving. Patient Language: Palestinian Prescriptions: No Action hydrochlorothiazide 12.5 mg Capsule 12.5 mg PO DAILY Patient Comments: has not been taking it as ordered aspirin,buffd-calcium carb-mag 325 mg tablet 1 tablet PO DAILY Qty: 30 0RF sennosides-docusate sodium [Senna with Docusate Sodium] 8.6-50 mg tablet 1 tab-cap PO BID PRN (Reason: constipation) Qty: 20 1RF Follow-up/Referrals: PHYSICIAN,LAWN MOWER OPERATOR [Primary Care Provider, Internal Medicine] Time of Disposition: 09:02
== END 2025-02-21 09:03 | disposition home or self-care (01) ==
PROVIDERS: Emergency Provider Nurse Practitioner Family
DX: J06.9 Acute upper respiratory infection, unspecified (principal); R05.9 Cough, unspecified; I10 Essential (primary) hypertension; Z87.891 Personal history of nicotine dependence
CPT/HCPCS: 87081; 87880; 99213; G0463